=== PATIENT | male | born 1985 | race Caucasian/White ===

== ENCOUNTER 2016-11-10 09:59 | Emergency (ER) | payer BC, OTHER ==
[~2016-11-10] VITALS: Ht 182.9 cm; Wt 115.0 kg
[2016-11-10 10:03] VITALS: BP 149/95; PULSE 58; TEMP 97.9
== END 2016-11-10 10:45 | disposition home or self-care (01) ==
LOC: COL.ER 09:59
DX: S51.012A Laceration without foreign body of left elbow, initial encounter (principal); W00.0XXA Fall on same level due to ice and snow, initial encounter; Y92.008 Other place in unspecified non-institutional (private) residence as the place of occurrence of the external cause